=== PATIENT | female | born 1955 | race Caucasian/White ===

== ENCOUNTER 2017-03-15 16:46 | Emergency (ER) | payer OTHER ==
[~2017-03-15] VITALS: Ht 170.2 cm; Wt 75.0 kg
[2017-03-15 16:52] VITALS: BP 151/83; PULSE 90; RESP 16; TEMP 98.4; O2SAT 100
[2017-03-15] MEDS ORDERED: SYNT25TA PO (17:08)
[2017-03-15] MEDS ORDERED: ATOR40TA16 PO (17:08)
--- NOTE | 2017-03-15 17:12 | PD ---
HPI Chief Complaint: Musculoskeletal Complaint Time Seen by Provider: 17:06 Travel History International Travel<30 days: No Contact w/Intl Traveler<30days: No Traveled to known affect area: No History of Present Illness HPI 62-year-old female presents to the emergency room for evaluation of right upper arm pain and swelling after trip and fall just prior to arrival. Patient was walking along the beach when she slipped on a large piece of plastic, like a slip and slide. Patient states it all happened very quickly but she believes she fell backwards on her buttocks with her arms outstretched. Patient came straight from the beach to the emergency room and has not taken anything for pain. States pain is so severe it is causing her to feel lightheaded and nauseous anytime she moves her arm. She denies hitting her head or loss of consciousness. Denies any other injuries. PFSH Past Medical History Hx Anticoagulant Therapy: Yes (ASA) Social History Tobacco Use: No Allergies-Medications (Allergen,Severity, Reaction): Coded Allergies: No Known Allergies (Unverified , 03/15/17) Reported Meds & Prescriptions Reported Meds & Active Scripts Active Zofran Odt (Ondansetron Odt) 4 Mg Tab 4 Mg SL Q6HR PRN Percocet (Oxycodone-Acetaminophen) 5-325 mg Tab 1 Tab PO Q6H PRN Reported Atorvastatin (Atorvastatin Calcium) 40 Mg Tab Unknown Dose PO HS Synthroid (Levothyroxine Sodium) 25 Mcg Tab Unknown Dose PO DAILY Review of Systems Except as stated in HPI: all other systems reviewed are Neg Physical Exam Narrative GENERAL: Well-nourished, well-developed female in no acute distress. Afebrile. SKIN: Focused skin assessment warm/dry. HEAD: Normocephalic. EYES: No scleral icterus. No injection or drainage. NECK: Supple, trachea midline. No JVD or lymphadenopathy. CARDIOVASCULAR: Regular rate and rhythm without murmurs, gallops, or rubs. RESPIRATORY: Breath sounds equal bilaterally. No accessory muscle use. MUSCULOSKELETAL: No cyanosis. Mild edema of the right upper arm. Extreme tenderness to palpation of the proximal humerus. 2+ radial pulse. No tenderness to palpation of the elbow. Data Data Last Documented VS Vital Signs Date Time Temp Pulse Resp B/P Pulse Ox O2 Delivery O2 Flow Rate FiO2 03/15/17 18:30 16 03/15/17 16:52 98.4 90 151/83 100 Orders Humerus (Min 2vws) (03/15/17 ) Acetamin-Hydrocod 325-5 Mg ([place] 5-325 (03/15/17 17:15) Ondansetron Odt (Zofran Odt) (03/15/17 17:15) Splint Or Brace Apply/Monitor (03/15/17 18:06) MDM Medical Decision Making Medical Screen Exam Complete: Yes Emergency Medical Condition: Yes Medical Record Reviewed: Yes Differential Diagnosis Fracture, sprain, strain, dislocation Narrative Course 62-year-old female presents to the emergency room for evaluation of right upper arm pain and swelling after falling on an outstretched arm just prior to arrival. Patient denies any other injuries. Denies hitting her head or loss of consciousness. Physical exam reveals mild edema and extreme tenderness to palpation of the proximal humerus. She is holding her arm flexed and against her abdomen. Right upper extremity is neurovascularly intact with 2+ radial pulse. Radial, ulnar, and median nerves intact. Extreme tenderness to palpation of any range of motion of the right upper extremity. X-ray shows comminuted proximal humeral fracture at the surgical neck. Patient is from out of town and would prefer to follow up with a surgeon near her house. She was placed in a sling and swath and told to follow-up with a surgeon within 1 week for definite management. She was told there is a small likelihood of surgery and that she'll need an orthopedic surgeon to dictate final management. She was discharged with prescription for Zofran and Percocet and told to return for worsening symptoms. She understands and agrees to plan. Diagnosis Primary Impression: Proximal humerus fracture Qualified Code: S42.201A - Closed fracture of proximal end of right humerus, unspecified fracture morphology, initial encounter Referrals: Primary Care Physician Patient Instructions: General Instructions, Proximal Humerus Fracture (ED) Additional Instructions: Rest and drink plenty of fluids. Take Percocet as directed, as needed for pain. Do not drink alcohol or drive while taking this medication. Take ibuprofen with food as directed, as needed for pain. Apply ice to the affected area for 20 minutes at a time, as needed for pain and swelling. Follow-up with an orthopedic surgeon within 1 week. Return to the emergency room for worsening symptoms. Med/Other Pt SpecificInfo: Prescription(s) given Scripts Ondansetron Odt (Zofran Odt)4 Mg Tab4 Mg SL Q6HR PRN (Nausea/Vomiting) #20 TAB Ref 0 Prov:Leobardo Dominguez MD 03/15/17 Oxycodone-Acetaminophen (Percocet)5-325 mg Tab1 Tab PO Q6H PRN (PAIN) #15 TAB Ref 0 Prov:Leobardo Dominguez MD 03/15/17 Disposition: 01 DISCHARGE HOME Condition: Stable Shelley Sharp Mar 15, 2017 17:12
[2017-03-15] MEDS ORDERED: ACETAMINOPHEN/HYDROcodone 325 MG/5 MG TAB PO ONE (17:15)
[2017-03-15] MEDS ORDERED: ONDANSETRON ODT 4 MG TAB PO ONE (17:15)
--- NOTE | 2017-03-15 18:00 | RADRPT ---
EXAM DATE/TIME: 03/15/2017 17:11 [facility] COMPARISON: No previous studies available for comparison. INDICATIONS : Right arm pain post fall. MEDICAL HISTORY : None. SURGICAL HISTORY : None. ENCOUNTER: Initial ACUITY: 1 day PAIN SCORE: 9/10 LOCATION: Right upper extremity FINDINGS: Slightly comminuted fracture of the right humeral surgical neck. Remaining visualized osseous structu res appear intact. A.c. joint and glenohumeral joint are grossly maintained. CONCLUSION: 1. Slightly comminuted right humeral surgical neck fracture. Domingo Franco MD on March 15, 2017 at 17:57 Board Certified Radiologist. This report was verified electronically.
[2017-03-15] MEDS ORDERED: PERC5TAB12 PO (18:08)
[2017-03-15 18:30] VITALS: RESP 16
[2017-03-15] MEDS ORDERED: ZOFR4TAB3 SL (18:34)
== END 2017-03-15 18:50 | disposition home or self-care (01) ==
LOC: PHEFT 16:46
DX: S42.211A Unspecified displaced fracture of surgical neck of right humerus, initial encounter for closed fracture (principal); W18.09XA Striking against other object with subsequent fall, initial encounter; Y93.01 Activity, walking, marching and hiking; Y92.832 Beach as the place of occurrence of the external cause
CPT/HCPCS: 29240; 73060